=== PATIENT | male | born 1970 | race Caucasian/White ===

== ENCOUNTER 2021-05-11 12:55 | Emergency (ER) | payer SELFPAY ==
[2021-05-11] MEDS ORDERED: IBUPROFEN800 MG PO (14:51)
== END 2021-05-11 15:25 | disposition home or self-care (01) ==
LOC: ER1 12:55
DX: R07.81 Pleurodynia (principal); G89.29 Other chronic pain; I25.10 Atherosclerotic heart disease of native coronary artery without angina pectoris; E11.9 Type 2 diabetes mellitus without complications; W01.10XA Fall on same level from slipping, tripping and stumbling with subsequent striking against unspecified object, initial encounter; Y92.009 Unspecified place in unspecified non-institutional (private) residence as the place of occurrence of the external cause
CPT/HCPCS: 71100; 72170; 99283

== ENCOUNTER 2021-05-13 13:36 | Emergency (ER) | payer SELFPAY ==
[~2021-05-13 13:36] MED LIST: IBUPROFEN800 MG PO
[2021-05-13 14:45] LABS: HEMOGLOBIN 9.1 gm/dl (14.0-17.5); RED BLOOD COUNT 2.83 M/UL (4.20-5.50); WHITE BLOOD COUNT 4.8 K/UL (4.5-11.0)
[2021-05-13 14:49] LABS: BUN/CREATININE RATIO 33 (0-10)
[2021-05-14 04:07] LABS: ACINETOBACTER BAUMANNII Not Detected (Negative); CANDIDA ALBICANS Not Detected (Negative); CANDIDA KRUSEI Not Detected (Negative); CANDIDA TROPICALIS Not Detected (Negative); ENTEROCOCCUS Not Detected (Negative); ESCHERICHIA COLI Not Detected (Negative); HAEMOPHILUS INFLUENZAE Not Detected (Negative); KLEBSIELLA OXYTOCA Not Detected (Negative); KLEBSIELLA PNEUMONIAE Not Detected (Negative); KPC-CARBAPENEM-RESISTANCE GENE Not Detected (Negative); PROTEUS Not Detected (Negative); PSEUDOMONAS AERUGINOSA Not Detected (Negative); SERRATIA MARCESANS Not Detected (Negative); STAPHYLOCOCCUS Not Detected (Negative); STAPHYLOCOCCUS AUREUS Not Detected (Negative); STREP AGALACTIAE (GROUP B) Not Detected (Negative); STREP PYOGENES (GROUP A) Not Detected (Negative); mecA (METHICILLIN RESIST GENE Not Detected (Negative); vanA/B (VANCOMYCIN RESIST GENE Not Detected (Negative)
[2021-05-14 05:52] LABS: STREPTOCOCCUS DETECTED (Negative)
== END 2021-05-14 02:59 | disposition home or self-care (01) ==
LOC: ER1 13:36
PROVIDERS: Emergency Medicine
DX: K72.90 Hepatic failure, unspecified without coma (principal); D72.829 Elevated white blood cell count, unspecified; Z20.822 Contact with and (suspected) exposure to COVID-19; Z85.6 Personal history of leukemia
CPT/HCPCS: 70450; 71045; 80053; 80307; 81001; 82140; 83605; 83735; 84100; 85025; 85610; 85730; 87040; 87077; 87086; 87150; 87186; 93005; 96372; 96374; 99285; J2270; J3411; Q9967; U0002